=== PATIENT | female | born 1950 | race Caucasian/White ===

== ENCOUNTER → 2020-07-26 | Outpatient (CLI) | payer OTHER ==
[~2020-07-26] MED LIST: ALBU2.5V8 INH; AMLO-186 PO; AMLO1CAP5 PO; BENA20TA4 PO; CETI10TA74 PO; MOME13HF2 IH; MULT-246 PO; VALA10005 PO; VITA80003 PO
--- NOTE | 2020-07-26 16:15 | KCIC ---
INDICATION: Osteoporosis screening. Postmenopausal screening COMPARISON: None. TECHNIQUE: Bone densitometry was performed through the lumbar spine and proximal femur. FINDINGS: Lumbar Spine: BMD: 0.78 T-Score: -2.5 Proximal Femur: BMD: 0.68 T-Score: -2.2 IMPRESSION: 1. Lumbar spine falls within the osteoporotic range. 2. Proximal femur falls within the osteopenic range. Electronically signed by: Madhu Walton MD (07/26/2020 4:12 PM) [id number]
--- NOTE | 2020-07-27 08:23 | KCIC ---
CT for coronary artery calcium scoring, without IV contrast, 07/27/2020 8:19 AM INDICATION: Reason: Cardiovascular screening, no family hx heart disease. / Spl. Instructions: / His tory: Technique: Noncontrast CT images through the coronary arteries was performed . Findings: Significant centrilobular emphysema is noted. No other significant noncardiac findings are identified . Visual inspection of the coronary arteries: Dimension spell calcification is seen in the left anterio r descending and right coronary arteries. The remaining coronary arteries are without discernible linda cified plaque. The computer-generated calcium scoring utilizing AJ-130 criteria are as follows: Left Main Artery: 0. Left Anterior Descending Artery: 38.3. Left Circumflex Artery: 0. Right Coronary Artery: 3.2. The total calcium score is 41.5. Impression: 1. Your total calcium score is 41.5.11-100: Plaque is present. This correlates with mild heart disea se and a moderate risk for a myocardial infarction. 2. Centrilobular emphysema. Table: 0: No plaque is present. The chance of significant heart disease is less than 5%, and corresponds to a very low risk for a myocardial infarction. 1-10: A small amount of plaque is present. The chance of significant heart disease is less than 10%, and corresponds to a low risk for a myocardial infarction. 11-100: Plaque is present. This correlates with mild heart disease and a moderate risk for a myocardi al infarction. 101-400: A moderate amount of plaque is present. This correlates with heart disease, and a moderate t o high risk for a myocardial infarction. Over 400: A large amount of plaque is present. This correlates with a greater than 90% chance of a h igh grade stenosis. The risk for myocardial infarction is high. CT DOSING PQRS STATEMENT: One or more of the following individualized dose reduction techniques were utilized for this examinat ion: 1. Automated exposure control 2. Adjustment of the mA and/or kV according to patient size 3. Use of iterative reconstruction technique Electronically signed by: Manjinder Ramirez MD (07/27/2020 8:20 AM) [id number]
== END ==
LOC: KCIC CT 12:20
PROVIDERS: ATTEND Family Medicine
DX: Z13.6 Encounter for screening for cardiovascular disorders (principal); I10 Essential (primary) hypertension; M81.0 Age-related osteoporosis without current pathological fracture; M85.859 Other specified disorders of bone density and structure, unspecified thigh; J43.2 Centrilobular emphysema; Z78.0 Asymptomatic menopausal state
CPT/HCPCS: 75571; 77080